=== PATIENT | female | born 1985 | race American Indian/Alaskan Native ===

== ENCOUNTER 2020-06-17 12:30 | Emergency (ER) | payer MEDICAID ==
[2020-06-17 12:48] VITALS: BP 208/126
--- NOTE | 2020-06-17 13:07 | Event Note ---
Date: 06/17/20 EKG interpreted by myself. There is no prior for comparison. Sinus rhythm, 86 bpm. Normal axis, QTC 465 ms. Motion artifact V5. Poor R wave progression. ST abnormality V2, there is no reciprocal change, the EKG is not a STEMI. The EKG was also transmitted to our gas producer, Dr. Raygoza, Who personally evaluated the EKG, and agree that this EKG does not meet criteria for Processing Technologist activation
[2020-06-17] MEDS ORDERED: ASPIRIN 325 MG TAB PO ONE (13:13)
--- NOTE | 2020-06-17 13:51 | XRay Report ---
CHEST 2 VIEWS INDICATION / CLINICAL INFORMATION: chest pain. COMPARISON: None available. FINDINGS: SUPPORT DEVICES: None. HEART / MEDIASTINUM: No significant abnormality. LUNGS / PLEURA: No significant pulmonary or pleural abnormality. No pneumothorax. ADDITIONAL FINDINGS: No significant additional findings. IMPRESSION: 1. No acute findings. Signer Name: Fabian Zeng MD Signed: 06/17/2020 1:47 PM Workstation Name: [id number]
[2020-06-17 15:39] LABS: Basophils % (Auto) 0.2 % (0.0-1.8); Eosinophils # (Auto) 0.2 K/mm3 (0.0-0.4); Eosinophils % (Auto) 1.7 % (0.0-4.3); Hematocrit 42.2 % (30.3-42.9); Hemoglobin 14.4 gm/dl (10.1-14.3); Lymphocytes # (Auto) 2.4 K/mm3 (1.2-5.4); Lymphocytes % (Auto) 24.8 % (13.4-35.0); Mean Corpuscular HGB Conc 34 % (30-34); Mean Corpuscular Volume 97 fl (79-97); Monocytes # (Auto) 0.5 K/mm3 (0.0-0.8); Monocytes % (Auto) 4.6 % (0.0-7.3); Platelet Count 176 K/mm3 (140-440); Red Blood Count 4.36 M/mm3 (3.65-5.03); Red Cell Distribution Width 13.4 % (13.2-15.2)
[2020-06-17 15:42] LABS: Alanine Aminotransferase 11 units/L (7-56); Albumin 4.2 g/dL (3.9-5); Blood Urea Nitrogen 9 mg/dL (7-17); Calcium 9.1 mg/dL (8.4-10.2); Hemolysis Index 66
[2020-06-17 15:47] LABS: BUN/Creatinine Ratio 15
== END 2020-06-17 17:20 | disposition left against medical advice (07) ==
LOC: ED 12:30
DX: R07.89 Other chest pain (principal); Z53.21 Procedure and treatment not carried out due to patient leaving prior to being seen by health care provider
CPT/HCPCS: 36415; 71046; 80053; 84484; 85025; 93005

== ENCOUNTER 2020-07-20 21:04 | Emergency (ER) | payer MEDICAID ==
[2020-07-20 22:55] LABS: Basophils % (Auto) 0.3 % (0.0-1.8); Eosinophils # (Auto) 0.2 K/mm3 (0.0-0.4); Eosinophils % (Auto) 2.6 % (0.0-4.3); Hematocrit 43.1 % (30.3-42.9); Hemoglobin 14.7 gm/dl (10.1-14.3); Lymphocytes # (Auto) 3.5 K/mm3 (1.2-5.4); Lymphocytes % (Auto) 40.2 % (13.4-35.0); Mean Corpuscular HGB Conc 34 % (30-34); Mean Corpuscular Volume 96 fl (79-97); Monocytes # (Auto) 0.6 K/mm3 (0.0-0.8); Monocytes % (Auto) 6.4 % (0.0-7.3); Platelet Count 142 K/mm3 (140-440); Red Blood Count 4.47 M/mm3 (3.65-5.03); Red Cell Distribution Width 12.4 % (13.2-15.2)
[2020-07-20 23:18] LABS: Alanine Aminotransferase 11 units/L (7-56); Albumin 4.4 g/dL (3.9-5); Blood Urea Nitrogen 14 mg/dL (7-17); Hemolysis Index 7
[2020-07-20 23:23] LABS: BUN/Creatinine Ratio 20
[2020-07-21 00:38] LABS: Bilirubin,Urine NEG (Negative); Blood,Urine NEG (Negative); Color,Urine Yellow (Yellow); Mucus,Urine FEW /HPF
[2020-07-21] MEDS ORDERED: traMADol 50 MG TAB PO ONE (00:42)
[2020-07-21] MEDS ORDERED: cloNIDine 0.1 MG TAB PO ONE (01:01)
--- NOTE | 2020-07-21 01:04 | Emergency Department Report ---
ED General Adult HPI - General Chief complaint: High BP Stated complaint: HIGH BP/RT LEG PAIN/SWOLLEN Time Seen by Provider: 07/21/20 00:40 Source: patient Mode of arrival: Ambulatory Limitations: No Limitations - History of Present Illness Initial comments: Patient is a 34-year-old -Citizen Of [place] female who presents for complaint of hypertension and leg cramping. Symptoms for the past 2 weeks. Patient states history of hypertension however has been noncompliant with BP medicines for the past 6 months. Patient denies chest pain, shortness of breath, nausea vomiting there is no back pain has been no diaphoresis, dizziness or lightheadedness. P atient drove self to ED is amatory with steady gait with no acute distress. Patient describes leg pain as anterior. Tib-fib described as spasm intermittently. Symptoms are relieved with elevation and rest. Symptoms are exacerbated by caring for 4 children at home per patient. Severity scale (0 -10): 4 - Related Data Previous Rx's Medication Instructions Recorded Last Taken Type Nitrofurantoin Branch/M-Cryst 100 mg PO Q12HR 7 Days #14 capsule 07/21/20 Unknown Rx [Macrobid CAP] hydroCHLOROthiazide [Hctz] 12.5 mg PO DAILY #30 capsule 07/21/20 Unknown Rx lisinopriL [Lisinopril] 10 mg PO DAILY #30 tablet 07/21/20 Unknown Rx Allergies Allergy/AdvReac Type Severity Reaction Status Date / Time No Known Allergies Allergy Unverified 06/17/20 12:44 ED Review of Systems ROS: Stated complaint: HIGH BP/RT LEG PAIN/SWOLLEN Other details as noted in HPI Constitutional: denies: chills, fever Eyes: denies: eye pain, eye discharge, vision change ENT: denies: ear pain, throat pain Respiratory: denies: cough, shortness of breath, wheezing Cardiovascular: denies: chest pain, palpitations Endocrine: no symptoms reported Gastrointestinal: as per HPI Genitourinary: denies: urgency, dysuria, discharge Musculoskeletal: other (LE Pain) Skin: denies: rash, lesions Neurological: denies: headache, weakness, paresthesias, vertigo Psychiatric: anxiety Hematological/Lymphatic: denies: easy bleeding, easy bruising ED Past Medical Hx - Past Medical History Previous Medical History?: Yes Hx Hypertension: Yes Hx Asthma: Yes Additional medical history: bronchitis - Surgical History Past Surgical History?: Yes Additional Surgical History: x4 - Social History Smoking Status: Current Every Day Smoker Substance Use Type: None - Medications Home Medications: Home Medications Medication Instructions Recorded Confirmed Last Taken Type Nitrofurantoin Branch/M-Cryst 100 mg PO Q12HR 7 Days #14 capsule 07/21/20 Unknown Rx [Macrobid CAP] hydroCHLOROthiazide [Hctz] 12.5 mg PO DAILY #30 capsule 07/21/20 Unknown Rx lisinopriL [Lisinopril] 10 mg PO DAILY #30 tablet 07/21/20 Unknown Rx ED Physical Exam - General Limitations: No Limitations General appearance: alert, in no apparent distress - Head Head exam: Present: atraumatic, normocephalic - Eye Eye exam: Present: normal appearance, PERRL, EOMI Pupils: Present: normal accommodation - ENT ENT exam: Present: mucous membranes moist - Neck Neck exam: Present: normal inspection, full ROM. Absent: tenderness - Respiratory Respiratory exam: Present: normal lung sounds bilaterally. Absent: respiratory distress, wheezes, stridor, chest wall tenderness - Cardiovascular Cardiovascular Exam: Present: regular rate, normal rhythm, normal heart sounds. Absent: systolic murmur, diastolic murmur, rubs, gallop - GI/Abdominal GI/Abdominal exam: Present: soft, normal bowel sounds. Absent: distended, tenderness, bruit - Rectal Rectal exam: Present: deferred - Extremities Exam Extremities exam: Present: full ROM, normal capillary refill. Absent: tenderness, pedal edema, joint swelling, calf tenderness - Expanded Lower Extremity Exam Right Lower Leg exam: Present: full ROM. Absent: tenderness, swelling, abrasion, laceration, ecchymosis, deformity, crepidus, dislocation, erythema, palpable cord, Eloina's sign Ankle exam: Present: full ROM. Absent: tenderness Foot/Toe exam: Present: full ROM. Absent: tenderness Neuro vascular tendon exam: Absent: pulse deficit, motor deficit, sensory deficit, tendon deficit Gait: Positive: observed and normal - Back Exam Back exam: Present: normal inspection, full ROM. Absent: tenderness, CVA tenderness (R), CVA tenderness (L) - Neurological Exam Neurological exam: Present: alert, oriented X3, CN II-XII intact, normal gait, reflexes normal. Absent: motor sensory deficit - Expanded Neurological Exam Expanded Patient oriented to: Present: person, place, time Speech: Present: fluid speech Motor strength exam: RUE: 5, LUE: 5, RLE: 5, LLE: 5 DTR: knee (R): 2+, knee (L): 2+ Best Eye Response ([place]): (4) open spontaneously Best Motor Response ([place]): (6) obeys commands Best Verbal Response (Fernando): (5) oriented Fernando Total: 15 - Psychiatric Psychiatric exam: Present: normal affect, normal mood - Skin Skin exam: Present: warm, dry, intact, normal color. Absent: rash ED Course Vital Signs 07/20/20 22:08 Temperature 98.6 F Pulse Rate 88 Respiratory 16 Rate Blood Pressure 214/95 O2 Sat by Pulse 98 Oximetry ED Medical Decision Making - Lab Data Result diagrams: 07/20/20 22:32 07/20/20 22:32 Labs 07/20/20 07/20/20 07/20/20 22:32 22:32 22:32 WBC 8.7 RBC 4.47 Hgb 14.7 H Hct 43.1 H MCV 96 MCH 33 H MCHC 34 RDW 12.4 L Plt Count 142 Lymph % (Auto) 40.2 H Branch % (Auto) 6.4 Eos % (Auto) 2.6 Baso % (Auto) 0.3 Lymph # (Auto) 3.5 Branch # (Auto) 0.6 Eos # (Auto) 0.2 Baso # (Auto) 0.0 Seg Neutrophils % 50.5 Seg Neutrophils # 4.4 Sodium 138 Potassium 3.5 L Chloride 102.4 Carbon Dioxide 28 Anion Gap 11 BUN 14 Creatinine 0.7 Estimated GFR > 60 BUN/Creatinine Ratio 20 Glucose 84 Calcium 9.0 Total Bilirubin 0.20 AST 11 ALT 11 Alkaline Phosphatase 70 NT-Pro-B Natriuret Pep 293.5 Total Protein 7.1 Albumin 4.4 Albumin/Globulin Ratio 1.6 HCG, Qual Negative Urine Color Urine Turbidity Urine pH Ur Specific [place] Urine Protein Urine Glucose (UA) Urine Ketones Urine Blood Urine Nitrite Urine Bilirubin Urine Urobilinogen Ur Leukocyte Esterase Urine WBC (Auto) Urine RBC (Auto) U Epithel Cells (Auto) Urine Mucus 07/21/20 00:24 WBC RBC Hgb Hct MCV MCH MCHC RDW Plt Count Lymph % (Auto) Branch % (Auto) Eos % (Auto) Baso % (Auto) Lymph # (Auto) Branch # (Auto) Eos # (Auto) Baso # (Auto) Seg Neutrophils % Seg Neutrophils # Sodium Potassium Chloride Carbon Dioxide Anion Gap BUN Creatinine Estimated GFR BUN/Creatinine Ratio Glucose Calcium Total Bilirubin AST ALT Alkaline Phosphatase NT-Pro-B Natriuret Pep Total Protein Albumin Albumin/Globulin Ratio HCG, Qual Urine Color Yellow Urine Turbidity Clear Urine pH 7.0 Ur Specific [place] 1.021 Urine Protein 30 mg/dl Urine Glucose (UA) Neg Urine Ketones Neg Urine Blood Neg Urine Nitrite Neg Urine Bilirubin Neg Urine Urobilinogen 2.0 Ur Leukocyte Esterase Sm Urine WBC (Auto) 11.0 H Urine RBC (Auto) 2.0 U Epithel Cells (Auto) 2.0 Urine Mucus Few - Medical Decision Making Labs noted normal. UA noted for positive leukocytes and WBCs plan treat for UTI antibiotics, refill BP medications. Patient will follow up primary care doctor in 2 to 3 days. Patient is currently alert oriented x3 amatory with steady gait with no acute distress. There is no dizziness, headache, lightheadedness, no chest pain, no shortness of breath no nausea vomiting no back pain. There is no posterior calf pain negative Homans sign, no pain with dorsiflexion. neg wells dvt score. Critical care attestation.: If time is entered above; I have spent that time in minutes in the direct care of this critically ill patient, excluding procedure time. ED Disposition Clinical Impression: Musculoskeletal pain HTN (hypertension) Qualifiers: Hypertension type: essential hypertension Qualified Code(s): I10 - Essential (primary) hypertension UTI (urinary tract infection) Qualifiers: Urinary tract infection type: acute cystitis Hematuria presence: without hem aturia Qualified Code(s): N30.00 - Acute cystitis without hematuria Disposition: DC- TO HOME OR SELFCARE Is pt being admited?: No Does the pt Need Aspirin: No Condition: Stable Instructions: Hypertension (ED), Urinary Tract Infection, Adult, Hypertension, Adult, [id number] Additional Instructions: Take all medications as prescribed. Hydrate as directed. Follow-up with PCP in 2 to 3 days. Return to emergency department should symptoms worsen. Prescriptions: hydroCHLOROthiazide [Hctz] 12.5 mg PO DAILY #30 capsule lisinopriL [Lisinopril] 10 mg PO DAILY #30 tablet Nitrofurantoin Branch/M-Cryst [Macrobid CAP] 100 mg PO Q12HR 7 Days #14 capsule Referrals: SAUD BLUE MD [Staff Physician] - 3-5 Days Time of Disposition: 01:14
[2020-07-21 02:08] VITALS: BP 180/94
== END 2020-07-21 01:40 | disposition home or self-care (01) ==
LOC: ED 21:04
DX: N39.0 Urinary tract infection, site not specified (principal); I10 Essential (primary) hypertension; M79.604 Pain in right leg; J45.909 Unspecified asthma, uncomplicated; F17.200 Nicotine dependence, unspecified, uncomplicated; Z98.890 Other specified postprocedural states; Z79.899 Other long term (current) drug therapy
CPT/HCPCS: 36415; 80053; 81001; 83880; 84703; 85025; 87086

== ENCOUNTER 2020-11-18 00:12 | Emergency (ER) | payer MEDICAID ==
--- NOTE | 2020-11-18 03:07 | Event Note ---
ED Screening Note Date of service: 11/18/20 Time: 03:04 ED Screening Note: 35-year-old female patient with history of asthma and hypertension presents to the emergency department with complaints of headache, anxiety, and depression. Patient states she has " depression" however she has never been formally diagnosed with this condition by a licensed medical provider. Patient was prescribed anxiety medicine previously but was unable to fill the medication. Patient states she has several children under the age of five. She recently came to [place] with all of her children and left their father behind. Today, patient attempted to take her child to a doctor's appointment, and she noticed "she did not feel like herself." Patient denies suicidal ideation but states "she feels like she's dying." Tachycardic and hypertensive in triage. Of note, patient has been noncompliant with her blood pressure medication. General: Awake, appropriately interactive, no acute distress. Neck: Supple. Full range of motion intact. Cardiovascular: Normal peripheral perfusion. Pulmonary: No respiratory distress. Patient is speaking normally without use of accessory muscles. Skin: No apparent rashes or lesions. Neurological: No facial asymmetry. Speech is clear. Follows commands. Patient is alert and oriented. Musculoskeletal: Moves all four extremities spontaneously with normal range of motion. Psych: Cooperative. Appropriate mood and affect. I have greeted and performed a focused rapid initial assessment of this patient. A comprehensive ED assessment and evaluation of the patient, analysis of all test results, and completion of the medical decision-making process will be conducted by additional ED providers. This initial assessment/diagnostic orders/clinical plan/treatment(s) is/are subject to change based on patients health status, clinical progression and re-assessment. Further treatment and workup at subsequent clinical provider's discretion. Patient/guardian urged not to elope from the ED as their condition may be serious if not clinically assessed and managed.
[2020-11-18 03:30] LABS: Bilirubin,Urine NEG (Negative); Blood,Urine NEG (Negative); Color,Urine Yellow (Yellow); Mucus,Urine FEW /HPF; Protein,Urine <15 mg/dL mg/dL (Negative); RBC,Urine < 1.0 /HPF (0.0-6.0); Urobilinogen,Urine < 2.0 mg/dL (<2.0)
[2020-11-18 03:40] LABS: Amphetamine Screen,Urine PRESUMPTIVE NEGATIVE; Benzodiazepines Screen,Urine PRESUMPTIVE NEGATIVE; Cannabinoid Screen,Urine PRESUMPTIVE NEGATIVE; Cocaine Screen,Urine PRESUMPTIVE NEGATIVE; Methadone Screen,Urine PRESUMPTIVE NEGATIVE; Opiate Screen,Urine PRESUMPTIVE NEGATIVE
[2020-11-18 03:59] LABS: Basophils % (Auto) 0.2 % (0.0-1.8); Eosinophils % (Auto) 0.5 % (0.0-4.3); Hematocrit 43.9 % (30.3-42.9); Hemoglobin 15.5 gm/dl (10.1-14.3); Lymphocytes % (Auto) 46.3 % (13.4-35.0); Mean Corpuscular HGB Conc 35 % (30-34); Mean Corpuscular Volume 93 fl (79-97); Monocytes # (Auto) 0.5 K/mm3 (0.0-0.8); Monocytes % (Auto) 7.6 % (0.0-7.3); Platelet Count 128 K/mm3 (140-440); Red Blood Count 4.72 M/mm3 (3.65-5.03); Red Cell Distribution Width 12.9 % (13.2-15.2)
[2020-11-18 04:19] LABS: Alanine Aminotransferase 11 units/L (7-56); Albumin 4.3 g/dL (3.9-5); Blood Urea Nitrogen 7 mg/dL (7-17); Calcium 8.8 mg/dL (8.4-10.2); Hemolysis Index 3
[2020-11-18 04:29] LABS: BUN/Creatinine Ratio 12
[2020-11-18] MEDS ORDERED: ACETAMINOPHEN 500 MG TAB ONE (05:31)
[2020-11-18] MEDS ORDERED: ACETAMINOPHEN 500 MG TAB PO ONE (05:31)
[2020-11-18 09:34] VITALS: BP 132/84
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
== END 2020-11-18 13:49 | disposition home or self-care (01) ==
LOC: ED 00:12
DX: U07.1 COVID-19 (principal); F32.9 Major depressive disorder, single episode, unspecified; I16.0 Hypertensive urgency; J45.909 Unspecified asthma, uncomplicated; Z98.890 Other specified postprocedural states; F17.200 Nicotine dependence, unspecified, uncomplicated
CPT/HCPCS: 36415; 80053; 80307; 81001; 84443; 84703; 85025; 99284; U0003; 80320; G0480